=== PATIENT | male | born 1960 | race Caucasian/White ===

== ENCOUNTER 2016-04-02 12:57 | Emergency (ER) | payer OTHER ==
[~2016-04-02] VITALS: Ht 182.9 cm; Wt 92.8 kg
[~2016-04-02 12:57] MED LIST: AMLO5 PO; AMOX500C PO; BUSP15TA PO; CYCL5TAB PO; ESCI10TA PO; GLIP5 PO; LANC1MIS74 XX; LEVO500T3 PO; MELO-1 PO; METF500T PO; ONETTES4 XX; PERC5TAB12 PO; PERC7.5T13 PO; RISP3TAB2 PO; SULF400T PO; TRAM50TA PO; TRIH2 PO
[2016-04-02 13:05] VITALS: BP 126/92; PULSE 108; RESP 16; TEMP 98.5; O2SAT 98
--- NOTE | 2016-04-02 13:58 | PD ---
HPI Chief Complaint: Fall Time Seen by Provider: 13:53 Travel History International Travel<30 days: No Contact w/Intl Traveler<30days: No Traveled to known affect area: No History of Present Illness HPI 55 year old male presents to the emergency department for evaluation after a trip and fall that occurred yesterday. He states he tripped over a stepping stone, falling forward and then rolling. Patient states he has low back pain and right hip pain since the fall. He denies any loss of consciousness or headache. He denies any neck pain. No chest pain or abdominal pain. No vomiting. He states he has been ambulatory, but with pain. He does report abrasions to the right anterior knee and left volar hand. He states his tetanus immunization has been within 5 years. Patient reports a history of schizophrenia, arthritis, hypertension, diabetes. He currently takes Risperdal and Mobic. He states he had some Percocet at home as well as some Flexeril which she took this morning. He also took a tramadol which should not relieve his pain. PFSH Past Medical History Hx Anticoagulant Therapy: No Arthritis: Yes Asthma: Yes Blood Disorders: No Bipolar Disorder: Yes Anxiety: Yes Depression: Yes (H/O OVERDOSE, ATTEMPTED SUICIDE) Heart Rhythm Problems: Yes (DYSRYTHMIAS) Cancer: No Cardiac Catheterization: Yes Cardiovascular Problems: Yes (htn on meds) High Cholesterol: Yes Chemotherapy: No Chest Pain: Yes Congestive Heart Failure: No Cirrhosis: No COPD: No Cerebrovascular Accident: No Diabetes: Yes (type 2) Patient Takes Glucophage: Yes Diminished Hearing: No Endocrine: No Gastrointestinal Disorders: Yes ("HERNIA REPAIR" ) GERD: No Genitourinary: No Hepatitis: Yes (HEP C +) Hiatal Hernia: Yes Hypertension: Yes Immune Disorder: No Inguinal Hernia: Yes (RIGHT) Implanted Vascular Access Dvce: No Musculoskeletal: Yes (Sciatica) Neurologic: Yes (SEIZURE RELATED TO ALCOHOL WITHDRAWAL PER PT) Psychiatric: Yes (SCHIZOPHRENIA) Reproductive: No Respiratory: Yes Immunizations Current: Yes Myocardial Infarction: No Radiation Therapy: No Renal Failure: No Schizophrenia: Yes Seizures: Yes (ETOH) Sleep Apnea: No Thyroid Disease: No Ulcer: No Tetanus Vaccination: < 5 Years Past Surgical History Abdominal Surgery: Yes (HERNIA REPAIR) AICD: No Joint Replacement: No Neurologic Surgery: Yes (BENIGN TUMOR CUT OUT OF HEAD - ) Oral Surgery: Yes (TONSILS REMOVED ) Pacemaker: No Tonsillectomy: Yes (1964) Other Surgery: Yes (RIGHT INGUINAL HERNIA REPAIR) Social History Alcohol Use: No (QUIT: AGE 49) Tobacco Use: No (QUIT:2010) Substance Use: No (QUIT AGE 49) Allergies-Medications (Allergen,Severity, Reaction): Coded Allergies: Darvocet-N 100 (Verified Allergy, Intermediate, ITCHING, 04/02/16) Reported Meds & Prescriptions Reported Meds & Active Scripts Active Tramadol (Tramadol HCl) 50 Mg Tab 50 Mg PO Q6H PRN Percocet (Oxycodone-Acetaminophen) 7.5-325 mg Tab 1 Tab PO Q4H PRN Flexeril (Cyclobenzaprine HCl) 5 Mg Tab 5 Mg PO BID Do not take when needing to drive or operative heavy machinery Reported Trihexyphenidyl (Trihexyphenidyl HCl) 2 Mg Tab 2 Mg PO BID Onetouch Ultra Test Strips (Blood Glucose Test Strips) 1 Sangeetha Sangeetha 50 Strip XX DAILYAC Onetouch Delica Lancets E 1 Mis Mis 1 Box XX DAILY Meloxicam 15 Mg Tab 15 Mg PO DAILY Metformin (Metformin HCl) 500 Mg Tab 500 Mg PO BID With meals Norvasc (Amlodipine Besylate) 5 Mg Tab 5 Mg PO DAILY Buspirone (Buspirone HCl) 15 Mg Tab 15 Mg PO BID Escitalopram (Escitalopram Oxalate) 10 Mg Tab 10 Mg PO DAILY Risperidone 3 Mg Tab 3 Mg PO BID Review of Systems Except as stated in HPI: all other systems reviewed are Neg Physical Exam Narrative GENERAL: Well-developed well-nourished male patient, afebrile. SKIN: Warm and dry. Patient has abrasion noted to the left volar hand and right anterior knee. HEAD: Normocephalic. Atraumatic. ENT: Mucosa pink and moist. No erythema or exudates. No uvular edema. No uvular , palatal, or tonsillar deviation. Airway patent. Nasal turbinates appear normal without nasal blood, purulent drainage or septal hematoma. Bilateral tympanic membranes are clear without erythema or perforation. EYES: No scleral icterus. No injection or drainage. NECK: Supple, trachea midline. No JVD or lymphadenopathy. CARDIOVASCULAR: Regular rate and rhythm without murmurs, gallops, or rubs. RESPIRATORY: Breath sounds equal bilaterally. No accessory muscle use. Lungs sounds are clear to auscultation. GASTROINTESTINAL: Abdomen soft, non-tender, nondistended. MUSCULOSKELETAL: No cyanosis, or edema. Patient has tenderness over right lateral hip. BACK: No obvious deformity. No CVA tenderness. Patient has tenderness over midline lumbar spine. No midline cervical spine tenderness. He has full rotation of the cervical spine without pain or stiffness. Data Data Last Documented VS Vital Signs Date Time Temp Pulse Resp B/P Pulse Ox O2 Delivery O2 Flow Rate FiO2 04/02/16 15:37 18 04/02/16 13:05 98.5 108 126/92 98 Orders Spine, Lumbar - Ltd (Ap & Lat) (04/02/16 ) Hip, Uni(Ap&Lat) W Ap Pelvis (04/02/16 ) Ketorolac Inj (Toradol Inj) (04/02/16 14:00) Orphenadrine Inj (Norflex Inj) (04/02/16 14:00) Acetamin-Hydrocod 325-5 Mg ([place] 5-325 (04/02/16 15:30) MDM Medical Decision Making Medical Screen Exam Complete: Yes Emergency Medical Condition: Yes Medical Record Reviewed: Yes Interpretation(s) x-ray lumbar spine CONCLUSION: No acute lumbar spine abnormality is identified. x-ray right hip with pelvis - CONCLUSION: Moderate severity bilateral hip joint osteoarthritis. No acute finding is identified. Differential Diagnosis Contusion versus fracture versus muscle strain versus muscle spasm versus abrasion Narrative Course 55-year-old male presents to the emergency department for evaluation of low back pain and right hip pain after trip and fall that occurred yesterday. X- ray of the right hip with pelvis and x-ray of the lumbar spine are ordered and pending. X-ray of the right hip with pelvis shows moderately severe bilateral hip joint osteoarthritis, but no acute finding. X-ray of the lumbar spine shows no acute abnormality. Patient will be discharged with reassurance diclofenac. He states here he has Flexeril at home. He also be given Lidoderm patches for pain. He is instructed to follow-up with his primary care physician. He is to return for any acute worsening of symptoms. The patient was discharged in stable condition with instructions, including return instructions and follow up instructions. Diagnosis Primary Impression: Low back pain Qualified Code: M54.5 - Acute bilateral low back pain without sciatica Additional Impression: Bilateral hip joint arthritis Referrals: Primary Care Physician call for appointment Patient Instructions: Arthritis (ED), Back Pain (ED), General Instructions Additional Instructions: Take diclofenac as instructed as needed with food for pain. Continue your Flexeril as instructed as needed. Use Lidoderm patch as directed. You may apply 1 patch daily, but take patch off after 12 hours. Follow-up with your primary care physician. Return to the emergency department for any acute worsening of symptoms. Med/Other Pt SpecificInfo: Prescription(s) given Scripts Lidocaine Patch 12 HR 5 % Patch1 Patch TOPICAL DAILY PRN (PAIN) #1 BOX Ref 0 Remove patch after 12 hours Prov:Kennedi Vick 04/02/16 Diclofenac Potassium 50 Mg Tab50 Mg PO TID PRN (PAIN SCALE 1 TO 10) #21 TAB Ref 0 Prov:Kennedi Vick 04/02/16 Disposition: 01 DISCHARGE HOME Condition: Stable Kennedi Vick Apr 02, 2016 13:58
[2016-04-02] MEDS ORDERED: KETOROLAC TROMETHAMINE 60 MG/2 ML (IM) VIAL IM ONE (14:00)
[2016-04-02] MEDS ORDERED: ORPHENADRINE INJ 60 MG/2 ML AMP IM ONE (14:00)
[2016-04-02] MEDS ORDERED: ACETAMINOPHEN/HYDROcodone 325 MG/5 MG TAB PO ONE (15:30)
--- NOTE | 2016-04-02 15:36 | RADHPO ---
EXAM DATE/TIME: 04/02/2016 14:35 [facility] COMPARISON: CT LUMBAR SPINE W/O CONTRAST, December 06, 2014, 19:59. INDICATIONS : Fell, low back pain MEDICAL HISTORY : None. SURGICAL HISTORY : None. ENCOUNTER: Initial ACUITY: 2 days PAIN SCORE: 8/10 LOCATION: Bilateral low back FINDINGS: Three views of the lumbar spine demonstrate five [id number] lumbar vertebral bodies. No fracture or compression deformity is present. There is no anterolisthesis or retrolisthesis. There is decreas ed disc at L3-L4. The visualized paraspinous soft tissues and pelvic bones demonstrate no acute abnormality. CONCLUSION: No acute lumbar spine abnormality is identified. Kenyon Squires MD on April 02, 2016 at 15:33 Board Certified Radiologist. This report was verified electronically.
[2016-04-02 15:37] VITALS: RESP 18
--- NOTE | 2016-04-02 15:37 | RADHPO ---
EXAM DATE/TIME: 04/02/2016 14:40 [facility] COMPARISON: No previous studies available for comparison. INDICATIONS : Fall, right hip area pain MEDICAL HISTORY : None. SURGICAL HISTORY : None. ENCOUNTER: Initial ACUITY: 2 days PAIN SCORE: 8/10 LOCATION: Right hip FINDINGS: AP view of the pelvis with 2 views of the right hip joint demonstrate no fracture or dislocation. The re are small osteophytes and mild joint space narrowing at the hip joint. Pelvic bones demonstrate no acute finding. Left hip joint also demonstrates osteoarthritic change. Clips overlie the right ingui nal region. CONCLUSION: Moderate severity bilateral hip joint osteoarthritis. No acute finding is identified. Kenyon Squires MD on April 02, 2016 at 15:34 Board Certified Radiologist. This report was verified electronically.
[2016-04-02] MEDS ORDERED: DICL50TA PO (15:45)
[2016-04-02] MEDS ORDERED: LIDO1PAD52 TOPICAL (15:45)
[2016-04-20] MEDS ORDERED: METF500T PO (16:27)
[2016-06-03] MEDS ORDERED: MELO-1 PO (15:12)
[2016-06-03] MEDS ORDERED: AZIT250T3 PO (15:19)
[2016-06-03] MEDS ORDERED: FLUT50SP EACH NARE (15:19)
== END 2016-04-02 16:03 | disposition home or self-care (01) ==
LOC: PHED 12:57 → PHEFT 16:03
DX: M54.5 Low back pain (principal); M16.0 Bilateral primary osteoarthritis of hip; S80.211A Abrasion, right knee, initial encounter; S60.512A Abrasion of left hand, initial encounter; W01.0XXA Fall on same level from slipping, tripping and stumbling without subsequent striking against object, initial encounter; J45.909 Unspecified asthma, uncomplicated; I10 Essential (primary) hypertension; E78.00 Pure hypercholesterolemia, unspecified; E11.9 Type 2 diabetes mellitus without complications
CPT/HCPCS: 72100; 73502; 99284; J1885; J2360

== ENCOUNTER 2016-05-10 08:37 | Emergency (ER) | payer OTHER ==
[~2016-05-10] VITALS: Ht 182.9 cm; Wt 95.0 kg
[~2016-05-10 08:37] MED LIST changes: -AMOX500C PO; +DICL50TA PO; -GLIP5 PO; -LEVO500T3 PO; +LIDO1PAD52 TOPICAL; -PERC5TAB12 PO; -SULF400T PO
[2016-05-10 08:41] VITALS: BP 140/95; PULSE 75; RESP 17; TEMP 97.9; O2SAT 97
--- NOTE | 2016-05-10 09:17 | PD ---
HPI Chief Complaint: Altered Mental Status Time Seen by Provider: 09:01 Travel History International Travel<30 days: No Contact w/Intl Traveler<30days: No Traveled to known affect area: No History of Present Illness HPI This is a 56-year-old male who has a history of diabetes, hypertension and schizophrenia who presents to the emergency department with 2 days of altered mental status. His ex- is with him and she says that he's been acting confused, disoriented, and is mixing up his words. She says this is happened in the past in the setting of his medications when he is been on too much. She took him [facility] this morning but they were concerned he might be having a stroke and they sent him over to the emergency department. Patient provides limited history. PFSH Past Medical History Hx Anticoagulant Therapy: No Arthritis: Yes Asthma: Yes Blood Disorders: No Bipolar Disorder: Yes Anxiety: Yes Depression: Yes (H/O OVERDOSE, ATTEMPTED SUICIDE) Heart Rhythm Problems: Yes (DYSRYTHMIAS) Cancer: No Cardiac Catheterization: Yes Cardiovascular Problems: Yes (htn on meds) High Cholesterol: Yes Chemotherapy: No Chest Pain: Yes Congestive Heart Failure: No Cirrhosis: No COPD: No Cerebrovascular Accident: No Diabetes: Yes (type 2) Patient Takes Glucophage: Yes Diminished Hearing: No Endocrine: No Gastrointestinal Disorders: Yes ("HERNIA REPAIR" ) GERD: No Genitourinary: No Hepatitis: Yes (HEP C +) Hiatal Hernia: Yes Hypertension: Yes Immune Disorder: No Inguinal Hernia: Yes (RIGHT) Implanted Vascular Access Dvce: No Musculoskeletal: Yes (Sciatica) Neurologic: Yes (SEIZURE RELATED TO ALCOHOL WITHDRAWAL PER PT) Psychiatric: Yes (SCHIZOPHRENIA) Reproductive: No Respiratory: Yes Immunizations Current: Yes Myocardial Infarction: No Radiation Therapy: No Renal Failure: No Schizophrenia: Yes Seizures: Yes (ETOH) Sleep Apnea: No Thyroid Disease: No Ulcer: No Influenza Vaccination: Yes Past Surgical History Abdominal Surgery: Yes (HERNIA REPAIR) AICD: No Joint Replacement: No Neurologic Surgery: Yes (BENIGN TUMOR CUT OUT OF HEAD - ) Oral Surgery: Yes (TONSILS REMOVED ) Pacemaker: No Tonsillectomy: Yes (1964) Other Surgery: Yes (RIGHT INGUINAL HERNIA REPAIR) Social History Alcohol Use: No (QUIT: AGE 49) Tobacco Use: No (QUIT:2010) Substance Use: No (OCCAS MARAJUANA: YESTERDAY) Allergies-Medications (Allergen,Severity, Reaction): Coded Allergies: Darvocet-N 100 (Verified Allergy, Intermediate, ITCHING, 05/10/16) Reported Meds & Prescriptions Reported Meds & Active Scripts Active Metformin (Metformin HCl) 500 Mg Tab 500 Mg PO BID With meals Reported Trihexyphenidyl (Trihexyphenidyl HCl) 2 Mg Tab 2 Mg PO BID Onetouch Ultra Test Strips (Blood Glucose Test Strips) 1 Sangeetha Sangeetha 50 Strip XX DAILYAC Onetouch Delica Lancets E 1 Mis Mis 1 Box XX DAILY Norvasc (Amlodipine Besylate) 5 Mg Tab 5 Mg PO DAILY Buspirone (Buspirone HCl) 15 Mg Tab 15 Mg PO BID Escitalopram (Escitalopram Oxalate) 10 Mg Tab 10 Mg PO DAILY Risperidone 3 Mg Tab 3 Mg PO BID Review of Systems ROS Limitations: Poor Historian Physical Exam Narrative GENERAL:Well appearing, no acute distress SKIN: Warm and dry. HEAD: Atraumatic. Normocephalic. EYES: Pupils equal and round. No injection or drainage. ENT: Moist mucous membranes NECK: Trachea midline. CARDIOVASCULAR: Regular rate and rhythm. No murmur appreciated. RESPIRATORY: Clear to auscultation. Breath sounds equal bilaterally. GASTROINTESTINAL: Abdomen soft, non-tender, nondistended. MUSCULOSKELETAL: No obvious deformities. NEUROLOGICAL: Awake and alert. No obvious cranial nerve deficits. 5 out of 5 strength in the upper and lower extremities with no ataxia. No dysarthria. Some expressive aphasia. PSYCHIATRIC: Appropriate mood and affect; insight and judgment normal. Data Data Last Documented VS Vital Signs Date Time Temp Pulse Resp B/P Pulse Ox O2 Delivery O2 Flow Rate FiO2 05/10/16 10:32 74 18 125/74 97 Room Air 05/10/16 08:41 97.9 Orders Complete Blood Count With Diff (05/10/16 09:10) Comprehensive Metabolic Panel (05/10/16 09:10) Prothrombin Time / Inr (Pt) (05/10/16 09:10) Act Partial Throm Time (Ptt) (05/10/16 09:10) Mri Brain W/O Contrast (05/10/16 ) ^ Insert Iv (05/10/16 09:10) Urinalysis - C+S If Indicated (05/10/16 09:11) Drug Screen, Random Urine (05/10/16 09:56) Labs Laboratory Tests Test 05/10/16 05/10/16 09:15 09:45 White Blood Count 6.8 TH/MM3 Red Blood Count 4.69 MIL/MM3 Hemoglobin 13.4 GM/DL Hematocrit 39.0 % Mean Corpuscular Volume 83.3 FL Mean Corpuscular Hemoglobin 28.7 PG Mean Corpuscular Hemoglobin 34.4 % Concent Red Cell Distribution Width 14.2 % Platelet Count 301 TH/MM3 Mean Platelet Volume 8.1 FL Neutrophils (%) (Auto) 58.8 % Lymphocytes (%) (Auto) 32.6 % Monocytes (%) (Auto) 4.7 % Eosinophils (%) (Auto) 1.3 % Basophils (%) (Auto) 2.6 % Neutrophils # (Auto) 4.0 TH/MM3 Lymphocytes # (Auto) 2.2 TH/MM3 Monocytes # (Auto) 0.3 TH/MM3 Eosinophils # (Auto) 0.1 TH/MM3 Basophils # (Auto) 0.2 TH/MM3 CBC Comment DIFF FINAL Differential Comment Prothrombin Time 10.1 SEC Prothromb Time International 0.9 RATIO Ratio Activated Partial 26.4 SEC Thromboplast Time Sodium Level 138 MEQ/L Potassium Level 4.6 MEQ/L Chloride Level 104 MEQ/L Carbon Dioxide Level 25.6 MEQ/L Anion Gap 8 MEQ/L Blood Urea Nitrogen 10 MG/DL Creatinine 0.93 MG/DL Estimat Glomerular Filtration 84 ML/MIN Rate Random Glucose 156 MG/DL Calcium Level 9.0 MG/DL Total Bilirubin 0.3 MG/DL Aspartate Amino Transf 26 U/L (AST/SGOT) Alanine Aminotransferase 29 U/L (ALT/SGPT) Alkaline Phosphatase 66 U/L Total Protein 7.2 GM/DL Albumin 3.9 GM/DL Urine Collection Type CLEAN CATCH Urine Color YELLOW Urine Turbidity CLEAR Urine pH 5.5 Urine Specific [place] 1.005 Urine Protein NEG mg/dL Urine Glucose (UA) NEG mg/dL Urine Ketones NEG mg/dL Urine Occult Blood NEG Urine Nitrite NEG Urine Bilirubin NEG Urine Leukocyte Esterase NEG Urine RBC 0-3 /hpf Urine Squamous Epithelial 0-5 /hpf Cells Microscopic Urinalysis Comment CULT NOT INDICATED Urine Collection Time 09:45 Urine Opiates Screen NEG Urine Barbiturates Screen NEG Urine Amphetamines Screen NEG Urine Benzodiazepines Screen NEG Urine Cocaine Screen NEG Urine Cannabinoids Screen POS MDM Medical Decision Making Medical Screen Exam Complete: Yes Emergency Medical Condition: Yes Interpretation(s) Afebrile, no tachycardia, mild hypertension No leukocytosis Electrolytes are reassuring Coags are normal Cannabinoids are positive Urinalysis is negative for infection MRI is normal Differential Diagnosis Schizophrenia, substance intoxication, stroke, tumor, medication side effect Narrative Course This is a 56-year-old male who presents to the emergency department with a history of schizophrenia with bizarre speech and some disorientation. He was placed on a monitor and an IV was established. Labs are obtained which were all reassuring. His drug screen was positive for cannabinoids. An MRI was obtained which was negative for acute stroke. I think the patient is safe for outpatient evaluation and at a behavioral psychiatry Center where his ex- will take him. Diagnosis Primary Impression: Schizophrenia Qualified Code: F20.9 - Schizophrenia, unspecified type Patient Instructions: General Instructions Additional Instructions: Follow up with Kriss Daugherty in regards to psychiatric or substance related issues at: [address] [place], [place] [id number] Med/Other Pt SpecificInfo: No Change to Meds Disposition: 01 DISCHARGE HOME Condition: Stable Buffy Mendoza MD May 10, 2016 09:17
[2016-05-10 09:26] LABS: BASOPHIL # 0.2 TH/MM3 (0-0.2); BASOPHIL % 2.6 % (0.0-2.0); EOSINOPHIL # 0.1 TH/MM3 (0-0.4); EOSINOPHIL % 1.3 % (0.0-4.0); HEMO FLAGS DIFF FINAL; LYMPH % 32.6 % (9.0-44.0); LYMPHOCYTE # 2.2 TH/MM3 (1.0-4.8); MEAN CELL VOLUME 83.3 FL (80.0-100.0); MEAN CORPUSCULAR HEMOGLOBIN 28.7 PG (27.0-34.0); MEAN CORPUSCULAR HGB CONC 34.4 % (32.0-36.0); MONO % 4.7 % (0.0-8.0); NEUT % 58.8 % (16.0-70.0); PLATELET COUNT 301 TH/MM3 (150-450); RED BLOOD COUNT 4.69 MIL/MM3 (4.50-5.90); RED CELL DISTRIBUTION WIDTH 14.2 % (11.6-17.2); WHITE BLOOD COUNT 6.8 TH/MM3 (4.0-11.0)
[2016-05-10 09:39] LABS: APTT (PATIENT) 26.4 SEC (24.3-30.1); INTERNATIONAL NORMALIZED RATIO 0.9 RATIO; PROTHROMBIN TIME - PATIENT 10.1 SEC (9.8-11.6)
[2016-05-10 09:52] LABS: CHLORIDE 104 MEQ/L (98-107); POTASSIUM 4.6 MEQ/L (3.5-5.1); SODIUM (NA) 138 MEQ/L (136-145)
[2016-05-10 10:00] LABS: ANION GAP 8 MEQ/L (5-15); BICARBONATE 25.6 MEQ/L (21.0-32.0); BLOOD UREA NITROGEN 10 MG/DL (7-18)
[2016-05-10 10:02] LABS: BLOOD, URINE NEG (NEG); GLUCOSE,URINE NEG (NEG); KETONE, URINE NEG (NEG); NITRITE,URINE NEG (NEG); PH, URINE 5.5 (5.0-8.5)
[2016-05-10 10:03] LABS: ALT (GPT) 29 U/L (12-78); AST (GOT) 26 U/L (15-37); GLOMERULAR FILTRATION RATE 84 ML/MIN (>89)
[2016-05-10 10:04] LABS: TOTAL BILIRUBIN ADULT 0.3 MG/DL (0.2-1.0)
[2016-05-10 10:06] LABS: ALKALINE PHOSPHATASE 66 U/L (45-117)
[2016-05-10 10:20] LABS: AMPHETAMINE, URINE NEG (NEG)
[2016-05-10 10:21] LABS: BARBITURATES, URINE NEG (NEG); COCAINE, URINE NEG (NEG)
[2016-05-10 10:32] VITALS: BP 125/74; PULSE 74; RESP 18; O2SAT 97
[2016-05-10 10:40] LABS: METHOD OF COLLECTION CLEAN CATCH
[2016-05-10 10:41] LABS: COMMENT (UR) CULT NOT INDICATED; CULTURE IF INDICATED CULT NOT INDICATED; RBC, URINE 0-3 /hpf (0-3); SQUAMOUS EPITHELIAL CELL URINE 0-5 /hpf (0-5); URINE COLOR YELLOW (YELLW/STRAW)
--- NOTE | 2016-05-10 11:54 | RADHPO ---
EXAM DATE/TIME: 05/10/2016 11:30 [facility] COMPARISON: CT BRAIN W/O CONTRAST, September 11, 2014, 23:49. INDICATIONS : Altered mental status. MEDICAL HISTORY : Hypertension. Diabetes mellitus type 2. Hepatitis C. SURGICAL HISTORY : Inguinal hernia repair. ENCOUNTER: Initial ACUITY: 1 day PAIN SCORE: 0/10 LOCATION: head TECHNIQUE: Multiplanar, multisequence MRI of the brain was performed without contrast. FINDINGS: CEREBRUM: The ventricles are normal for age. No evidence of midline shift, mass lesion, hemorrhage or acute in farction. No extraaxial fluid collections are seen. The pituitary gland and suprasellar cistern are normal in configuration. WHITE MATTER: No significant signal abnormalities are seen in the white matter. POSTERIOR FOSSA: The cerebellum and brainstem are intact. The 4th ventricle is midline. The cerebellopontine angle is unremarkable. The cerebellar tonsils are normal in position. DIFFUSION IMAGING: No focal areas of restricted diffusion are seen. No evidence of acute infarction. EXTRACRANIAL: The visualized portions of the orbits and paranasal sinuses are unremarkable. CONCLUSION: Normal MRI brain. Jostin Saul MD on May 10, 2016 at 11:51 Board Certified Radiologist. This report was verified electronically.
[2016-05-10 12:04] VITALS: BP 136/87; PULSE 74; RESP 18; O2SAT 97
[2016-06-03] MEDS ORDERED: MELO-1 PO (15:12)
[2016-06-03] MEDS ORDERED: AZIT250T3 PO (15:19)
[2016-06-03] MEDS ORDERED: FLUT50SP EACH NARE (15:19)
== END 2016-05-10 12:17 | disposition home or self-care (01) ==
LOC: PHED 08:37
DX: F20.9 Schizophrenia, unspecified (principal); I10 Essential (primary) hypertension; B19.20 Unspecified viral hepatitis C without hepatic coma; E11.9 Type 2 diabetes mellitus without complications; E78.00 Pure hypercholesterolemia, unspecified; Z79.4 Long term (current) use of insulin
CPT/HCPCS: 70551; 80053; 80307; 81001; 85025; 85610; 85730

== ENCOUNTER 2016-08-18 16:01 | Emergency (ER) | payer OTHER ==
[~2016-08-18] VITALS: Ht 182.9 cm; Wt 84.0 kg
[~2016-08-18 16:01] MED LIST changes: +AZIT250T3 PO; -CYCL5TAB PO; -DICL50TA PO; +FLUT50SP EACH NARE; -LIDO1PAD52 TOPICAL; -PERC7.5T13 PO; -TRAM50TA PO
[2016-08-18 16:03] VITALS: BP 135/82; PULSE 102; RESP 20; TEMP 97.4; O2SAT 96
--- NOTE | 2016-08-18 16:47 | PD ---
HPI . auditory hallucinations Chief Complaint: Psychiatric Symptoms Time Seen by Provider: 16:47 Travel History International Travel<30 days: No Contact w/Intl Traveler<30days: No Traveled to known affect area: No History of Present Illness HPI 56-year-old male with history of hypertension and diabetes was followed by Dr. Maldonado in [place] here with complaints of suicidal ideation and auditory hallucinations. Patient tells me that he was trying to walk to the [facility] crisis center for help, but was heading in the wrong direction. He got in touch with his ex- and he brought him into the emergency department for further evaluation. Here he is telling me that he has auditory hallucinations which she has been experiencing for quite some time. He tells me that he usually hears muffled sounds similar to what your would here in a crowded football stadium. He tells me that it usually doesn't bother him, but recently he started hearing voices that were calling his name. He tells me that he would take Risperdal and it would help with his symptoms, but recently he saw a new provider at [facility] who changed his Risperdal to Abilify and now he is back with worsening auditory hallucinations. He says they're so bad that he is contemplating suicide, but he does not have any type of plan. He denies any homicidal ideation. He has no other complaints. PFSH Past Medical History Hx Anticoagulant Therapy: No Arthritis: Yes Asthma: Yes Blood Disorders: No Bipolar Disorder: Yes Anxiety: Yes Depression: Yes (H/O OVERDOSE, ATTEMPTED SUICIDE) Heart Rhythm Problems: Yes (DYSRYTHMIAS) Cancer: No Cardiac Catheterization: Yes Cardiovascular Problems: Yes High Cholesterol: Yes Chemotherapy: No Chest Pain: Yes Congestive Heart Failure: No Cirrhosis: No COPD: No Cerebrovascular Accident: No Diabetes: Yes (type 2) Diminished Hearing: No Endocrine: No Gastrointestinal Disorders: Yes ("HERNIA REPAIR" ) GERD: No Genitourinary: No Hepatitis: Yes (HEP C +) Hiatal Hernia: Yes Hypertension: Yes Immune Disorder: No Inguinal Hernia: Yes (RIGHT) Implanted Vascular Access Dvce: No Musculoskeletal: Yes (Sciatica) Neurologic: Yes (SEIZURE RELATED TO ALCOHOL WITHDRAWAL PER PT) Psychiatric: Yes (SCHIZOPHRENIA) Reproductive: No Respiratory: Yes Immunizations Current: Yes Myocardial Infarction: No Radiation Therapy: No Renal Failure: No Schizophrenia: Yes Seizures: Yes (ETOH) Sleep Apnea: No Thyroid Disease: No Ulcer: No Past Surgical History Abdominal Surgery: Yes (HERNIA REPAIR) AICD: No Joint Replacement: No Neurologic Surgery: Yes (BENIGN TUMOR CUT OUT OF HEAD - ) Oral Surgery: Yes (TONSILS REMOVED ) Pacemaker: No Tonsillectomy: Yes (1964) Other Surgery: Yes (RIGHT INGUINAL HERNIA REPAIR) Social History Alcohol Use: No (QUIT: AGE 49) Tobacco Use: No (QUIT:2010) Substance Use: No ([facility]: YESTERDAY) Allergies-Medications (Allergen,Severity, Reaction): Coded Allergies: Darvocet-N 100 (Verified Allergy, Intermediate, ITCHING, 08/18/16) Reported Meds & Prescriptions Reported Meds & Active Scripts Active Azithromycin 250 Mg Tab 250 Mg PO DIRECTED Take 2 tabs (500 mg) on day 1 then 1 tab daily x 4 days. Fluticasone Nasal [place] 50 Mcg/Act Naspr 1-2 [place] EACH NARE HS PRN Use regularly for 2-4 weeks then stop. Take two week breaks before restarting if needed. Meloxicam 15 Mg Tab 15 Mg PO DAILY PRN Metformin (Metformin HCl) 500 Mg Tab 500 Mg PO BID With meals Reported Trihexyphenidyl (Trihexyphenidyl HCl) 2 Mg Tab 2 Mg PO BID Onetouch Ultra Test Strips (Blood Glucose Test Strips) 1 Sangeetha Sangeetha 50 Strip XX DAILYAC Onetouch Delica Lancets E 1 Mis Mis 1 Box XX DAILY Norvasc (Amlodipine Besylate) 5 Mg Tab 5 Mg PO DAILY Rx'ed by Cardiology Buspirone (Buspirone HCl) 15 Mg Tab 15 Mg PO BID Escitalopram (Escitalopram Oxalate) 10 Mg Tab 10 Mg PO DAILY Risperidone 3 Mg Tab 3 Mg PO BID Review of Systems General / Constitutional: No: Fever Eyes: No: Visual changes HENT: No: Headaches Cardiovascular: No: Chest Pain or Discomfort Respiratory: No: Shortness of Breath Gastrointestinal: No: Abdominal Pain Genitourinary: No: Dysuria Musculoskeletal: No: Pain Skin: No Rash Neurologic: No: Weakness Psychiatric: Positive: Suicidal Ideations, Other (auditory hallucinations ), No: Depression Endocrine: No: Polydipsia Hematologic/Lymphatic: No: Easy Bruising Physical Exam Narrative GENERAL: AAO x 3, no acute distress, Well-nourished, well-developed patient. SKIN: Warm and dry. No visible rashes or bruising. HEAD: Normocephalic and atraumatic. EYES: No scleral icterus. No injection or drainage. EOM intact, PERRLA ENT: No nasal drainage noted. Mucous membranes pink. Airway patent. NECK: Supple, trachea midline. No JVD. CARDIOVASCULAR: Regular rate and rhythm without murmurs, gallops, or rubs. RESPIRATORY: Breath sounds equal bilaterally. No accessory muscle use. No rhonchi or rales. GASTROINTESTINAL: Abdomen soft, non-tender, nondistended. EXTREMITIES: No cyanosis or edema. BACK: Nontender without obvious deformity. No CVA tenderness. NEURO: CN II-12 intact, lubricator granulator stenght normal b/l, UE and LE 5/5, no focal deficits PSYCH: AAO x 3, normal affect. Data Data Last Documented VS Vital Signs Date Time Temp Pulse Resp B/P Pulse Ox O2 Delivery O2 Flow Rate FiO2 08/18/16 16:03 97.4 102 20 135/82 96 Room Air Orders Complete Blood Count With Diff (08/18/16 16:47) Comprehensive Metabolic Panel (08/18/16 16:47) Psych Screen (08/18/16 16:47) Drug Screen, Random Urine (08/18/16 16:47) Alcohol (Ethanol) (08/18/16 16:47) Salicylates (Aspirin) (08/18/16 16:47) Tylenol (Acetaminophen) (08/18/16 16:47) Labs Laboratory Tests Test 08/18/16 08/18/16 17:15 17:21 White Blood Count 7.6 TH/MM3 Red Blood Count 4.57 MIL/MM3 Hemoglobin 12.9 GM/DL Hematocrit 38.6 % Mean Corpuscular Volume 84.4 FL Mean Corpuscular Hemoglobin 28.2 PG Mean Corpuscular Hemoglobin 33.5 % Concent Red Cell Distribution Width 15.3 % Platelet Count 281 TH/MM3 Mean Platelet Volume 8.3 FL Neutrophils (%) (Auto) 53.0 % Lymphocytes (%) (Auto) 38.2 % Monocytes (%) (Auto) 7.1 % Eosinophils (%) (Auto) 0.9 % Basophils (%) (Auto) 0.8 % Neutrophils # (Auto) 4.0 TH/MM3 Lymphocytes # (Auto) 2.9 TH/MM3 Monocytes # (Auto) 0.5 TH/MM3 Eosinophils # (Auto) 0.1 TH/MM3 Basophils # (Auto) 0.1 TH/MM3 CBC Comment DIFF FINAL Differential Comment Sodium Level 138 MEQ/L Potassium Level 5.4 MEQ/L Chloride Level 106 MEQ/L Carbon Dioxide Level 25.9 MEQ/L Anion Gap 6 MEQ/L Blood Urea Nitrogen 11 MG/DL Creatinine 0.77 MG/DL Estimat Glomerular Filtration 104 ML/MIN Rate Random Glucose 95 MG/DL Calcium Level 9.0 MG/DL Total Bilirubin 0.3 MG/DL Aspartate Amino Transf 48 U/L (AST/SGOT) Alanine Aminotransferase 31 U/L (ALT/SGPT) Alkaline Phosphatase 83 U/L Total Protein 6.9 GM/DL Albumin 3.5 GM/DL Salicylates Level LESS THAN 1.7 MG/DL Acetaminophen Level LESS THAN 2.0 MCG/ML Ethyl Alcohol Level LESS THAN 3 MG/DL Urine Opiates Screen NEG Urine Barbiturates Screen NEG Urine Amphetamines Screen NEG Urine Benzodiazepines Screen NEG Urine Cocaine Screen NEG Urine Cannabinoids Screen NEG MDM Medical Decision Making Medical Screen Exam Complete: Yes Emergency Medical Condition: Yes Medical Record Reviewed: Yes Differential Diagnosis Suicidal ideation, auditory hallucinations, schizophrenia, bipolar disorder, depression Narrative Course This is a 56-year-old male presenting with suicidal ideation and auditory hallucinations. He does not have any medical complaints, therefore I'll order a set of labs and if they're within normal limits, he will be cleared for psych screen. Labs reviewed. Potassium is slightly elevated at 5.4 but hemolysis noted in the sample. Otherwise unremarkable. Patient cleared for psych screen. Diagnosis Primary Impression: Auditory hallucinations Condition: Stable Nancy Zepeda Aug 18, 2016 16:47
[2016-08-18 17:31] LABS: BASOPHIL # 0.1 TH/MM3 (0-0.2); BASOPHIL % 0.8 % (0.0-2.0); EOSINOPHIL # 0.1 TH/MM3 (0-0.4); EOSINOPHIL % 0.9 % (0.0-4.0); HEMATOCRIT 38.6 % (39.0-51.0); HEMO FLAGS DIFF FINAL; LYMPH % 38.2 % (9.0-44.0); LYMPHOCYTE # 2.9 TH/MM3 (1.0-4.8); MEAN CELL VOLUME 84.4 FL (80.0-100.0); MEAN CORPUSCULAR HEMOGLOBIN 28.2 PG (27.0-34.0); MEAN CORPUSCULAR HGB CONC 33.5 % (32.0-36.0); MONO % 7.1 % (0.0-8.0); PLATELET COUNT 281 TH/MM3 (150-450); RED BLOOD COUNT 4.57 MIL/MM3 (4.50-5.90); RED CELL DISTRIBUTION WIDTH 15.3 % (11.6-17.2); WHITE BLOOD COUNT 7.6 TH/MM3 (4.0-11.0)
[2016-08-18 17:50] LABS: ANION GAP 6 MEQ/L (5-15); AST (GOT) 48 U/L (15-37); BICARBONATE 25.9 MEQ/L (21.0-32.0); BLOOD UREA NITROGEN 11 MG/DL (7-18); CHLORIDE 106 MEQ/L (98-107); GLOMERULAR FILTRATION RATE 104 ML/MIN (>89); SODIUM (NA) 138 MEQ/L (136-145)
[2016-08-18 17:53] LABS: ACETAMINOPHEN LESS THAN 2.0 MCG/ML (10.0-30.0); ALKALINE PHOSPHATASE 83 U/L (45-117); ALT (GPT) 31 U/L (12-78); TOTAL BILIRUBIN ADULT 0.3 MG/DL (0.2-1.0)
[2016-08-18 17:55] LABS: POTASSIUM 5.4 MEQ/L (3.5-5.1)
[2016-08-18 17:57] LABS: AMPHETAMINE, URINE NEG (NEG); BARBITURATES, URINE NEG (NEG); COCAINE, URINE NEG (NEG)
[2016-08-18] MEDS ORDERED: ARIP1TAB14 PO (19:31)
[2016-08-18 22:42] VITALS: BP 164/85; PULSE 77; RESP 18; O2SAT 98
[2016-08-19 02:43] VITALS: BP 120/73; PULSE 78; RESP 18
== END 2016-08-19 05:15 ==
LOC: NEPD 16:01 → NEPJ 08-19 05:15
DX: R44.0 Auditory hallucinations (principal); R45.851 Suicidal ideations; I10 Essential (primary) hypertension; E11.9 Type 2 diabetes mellitus without complications; B19.20 Unspecified viral hepatitis C without hepatic coma; Z79.84 Long term (current) use of oral hypoglycemic drugs; Z79.899 Other long term (current) drug therapy; Z87.891 Personal history of nicotine dependence
CPT/HCPCS: 80053; 80307; 85025; 99284